=== PATIENT | male | born 1960 | race Caucasian/White ===

== ENCOUNTER → 2020-09-26 | Day surgery (SDC) | payer OTHER ==
[~2020-09-26] MED LIST: CYCLOBENZAPRINE5 MG PO; FLOMAX0.4 MG PO; LOSARTAN POTASS50 MG PO; PERCOCET 5-3251 EACH PO; STRIBILD TABLE1 EACH PO
[2020-09-26 08:35] LABS: HEMATOCRIT 43.2 % (42.0-52.0); HEMOGLOBIN 14.6 gm/dL (14.0-18.0); MCH 30.6 pg (26.0-34.0); MCHC 33.8 g/dL (28.0-37.0); MCV 90.4 fL (80.0-100.0); MPV 5.7 fl. (7.2-11.1); RBC 4.78 mil/uL (4.50-6.00); RDW-CV 13.7 % (10.5-14.5); WBC 6.8 thou/uL (4.0-11.0)
[2020-09-26 08:43] LABS: CALCIUM 9.2 mg/dL (8.5-10.1); CREATININE 1.4 mg/dL (0.6-1.3); POTASSIUM 4.6 mmol/L (3.5-5.1)
--- NOTE | 2020-09-26 09:33 | EKG ---
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
--- NOTE | 2020-09-28 07:24 | OP ---
[address] [address] OPERATIVE REPORT Name: KARIS NOEL Room: [facility].#: [id number] Admission: 09/26/20 Attend Phys: Karis Edward II Discharge: Date of : 60 Report #: [id number] THIS REPORT FOR: cc: Josue Vargas MD, Anthony MD Greiner, Robert F. II DO ~ DATE OF SERVICE: 09/26/2020 PREOPERATIVE DIAGNOSIS: Right shoulder rotator cuff tear. POSTOPERATIVE DIAGNOSES: 1. Right shoulder rotator cuff tear. 2. Lateral clavicle osteoarthritis. 3. Bone and cartilage debris with labral tears, glenohumeral joint. 4. Subacromial impingement. PROCEDURES: 1. Right shoulder arthroscopic surgery with rotator cuff repair. 2. Lateral clavicle excision. 3. Extensive debridement of glenohumeral joint and labral tears. 4. Subacromial decompression. SURGEON: Karis Edward II, DO. SUPERVISOR [employer]: PATRICA Cordero. ANESTHESIA: Per operative record. ESTIMATED BLOOD LOSS: Minimal. ANTIBIOTICS: Per operative record. DRAINS: None. COMPLICATIONS: None. CONDITION OF THE PATIENT: Stable to recovery room. DESCRIPTION OF PROCEDURE: The patient was taken to the operative suite and placed supine on the operating table, given appropriate anesthesia. The patient was placed in modified beach chair position. All bony prominences were well padded and the right shoulder was sterilely prepped and draped. Surgery began by posterior portal incision. The arthroscope was advanced in the joint. There was shown to be labral tear as well as biceps tear and glenohumeral cartilage throughout the glenohumeral joint. Establishing an anterior portal, [place] [address] OPERATIVE REPORT Name: SADIEKARIS SANCHEZ Room: [facility].#: [id number] Admission: 09/26/20 Attend Phys: Karis Edward II Discharge: Date of : 60 Report #: [id number] was utilized to perform an extensive debridement throughout the superior, inferior as well as anterior and posterior portions of the glenohumeral joint to level labral tears, biceps tear and glenohumeral joint debris. The arthroscope was advanced in the subacromial space, subacromial decompression with partial anterior acromioplasty was performed with significant impingement in subacromial area. The distal centimeter of lateral clavicle was also excised due to significant osteoarthritis at the AC joint. Rotator cuff tear was noted to the lateral margin of supraspinatus measuring approximately 1.5 cm. This was debrided down to fresh tissue. A bone bed was then repaired along the lateral humerus down to bleeding bone. Two sutures tapes were then placed in the proximal aspect of the rotator cuff, placed in X configuration and anchored laterally with 2 anchors to the lateral humerus. This was probed and shown to be intact with excellent ____ rotator cuff and full range of motion of the shoulder without evidence of re-tear. Final irrigation was then performed of the shoulder and arthroscopic fluid, closed with 4-0 nylon in simple fashion. Dermabond and sterile dressings were applied. The patient transported to recovery room in stable condition. Counts were correct throughout the procedure. <ELECTRONICALLY SIGNED> By: Karis Edward II, DO 09/28/20 0724 [id number] Edward II, DO /nt
== END | disposition home or self-care (01) ==
LOC: M.SUR 05:57
PROVIDERS: ATTEND Orthopaedic Surgery
DX: S46.011A Strain of muscle(s) and tendon(s) of the rotator cuff of right shoulder, initial encounter (principal); S43.401A Unspecified sprain of right shoulder joint, initial encounter; M24.111 Other articular cartilage disorders, right shoulder; M19.011 Primary osteoarthritis, right shoulder; M25.511 Pain in right shoulder; J43.9 Emphysema, unspecified; F32.9 Major depressive disorder, single episode, unspecified; Z98.890 Other specified postprocedural states; Z79.899 Other long term (current) drug therapy; Z88.2 Allergy status to sulfonamides; Z88.8 Allergy status to other drugs, medicaments and biological substances; X58.XXXA Exposure to other specified factors, initial encounter; Y93.89 Activity, other specified; Y92.89 Other specified places as the place of occurrence of the external cause; Y99.8 Other external cause status